=== PATIENT | female | born 1965 | race Asian ===

== ENCOUNTER 2023-10-08 20:36 | Emergency (ER) | payer MEDICAID ==
[~2023-10-08] VITALS: Ht 149.9 cm; Wt 50.0 kg
[2023-10-08] MEDS ORDERED: LOSA-381 PO (21:02)
[2023-10-08] MEDS ORDERED: HYDR25TA2 PO (21:02)
[2023-10-08 22:25] LABS: INFLUENZA A-RTPCR,COMBO NEGATIVE FOR FLU A (NEGATIVE); INFLUENZA B-RTPCR,COMBO NEGATIVE FOR FLU B (NEGATIVE); RESPIRATORY SYNCYTIAL VRS-PCR NEGATIVE (NEGATIVE)
[2023-10-08 22:29] LABS: SARS COVID19 RTPCR, COMBO POSITIVE (NEGATIVE)
[2023-10-08 22:47] VITALS: BP 165/87; PULSE 95; RESP 19; TEMP 99.7
== END 2023-10-08 23:56 | disposition home or self-care (01) ==
LOC: EMS 20:37
DX: U07.1 COVID-19 (principal); I10 Essential (primary) hypertension; Z88.6 Allergy status to analgesic agent
CPT/HCPCS: 99283; 0241U